=== PATIENT | male | born 1975 | race Caucasian/White ===

== ENCOUNTER 2016-05-07 09:56 | Emergency (ER) | payer OTHER ==
[2016-05-07 10:58] VITALS: BP 98/73
--- NOTE | 2016-05-07 11:16 | UC ---
Bite Injury/Animal HPI - HPI Summary HPI Summary: complaint of tick that is embedded btween 2nd 3rd toe on left foot found it today tick is engorgend and he hads a rash unsre of how long tck has been in his slkin denies pain and fever - History of Current Complaint Chief Complaint: UC Stated Complaint: TICK IN FOOT Time Seen by Provider: 05/07/16 11:09 Hx Obtained From: Patient - Allergies/Home Medications Allergies/Adverse Reactions: Allergies Allergy/AdvReac Type Severity Reaction Status Date / Time No Known Allergies Allergy Verified 05/07/16 10:45 Home Medications: Home Medications Cetirizine* [ZyrTEC 10 MG TAB*] 5 mg PO DAILY 05/07/16 [History Confirmed ] Fluticasone NASAL SPRAY 50MCG* [Flonase NASAL SPRAY 50MCG*] 2 spray BOTH NARES DAILY 05/07/16 [History Confirmed 05/07/16] PMH/Surg Hx/FS Hx/Imm Hx Previously Healthy: Yes - Surgical History Surgical History: Yes Surgery Procedure, Year, and Place: inguinal hernia; R eye; wisdom teeth - Family History Known Family History: Negative: Cardiac Disease, Hypertension, Diabetes - Social History Occupation: Employed Full-time Lives: With Family Alcohol Use: None Substance Use Type: None Smoking Status (MU): Never Smoked Tobacco Review of Systems Constitutional: Negative Skin: Other - tick bite Eyes: Negative ENT: Negative Respiratory: Negative Cardiovascular: Negative Gastrointestinal: Negative Genitourinary: Negative Motor: Negative Neurovascular: Negative Musculoskeletal: Negative Neurological: Negative Psychological: Negative All Other Systems Reviewed And Are Negative: Yes Physical Exam Triage Information Reviewed: Yes Vital Signs: Initial Vital Signs Temp 98.3 F 05/07/16 10:48 Pulse 64 05/07/16 10:48 Resp 18 05/07/16 10:48 BP 98/73 05/07/16 10:48 Pulse Ox 97 05/07/16 10:48 Vital Signs Reviewed: Yes Eyes: Positive: Conjunctiva Clear ENT: Positive: Pharynx normal, TMs normal Neck: Positive: No Lymphadenopathy Respiratory: Positive: Lungs clear, Normal breath sounds, No respiratory distress Cardiovascular: Positive: RRR, No Murmur Abdomen Description: Positive: Soft Musculoskeletal: Positive: No Edema Neurological: Positive: Alert Psychological Exam: Normal Skin: Positive: Other - tick embedded between left 2nd and 3rd toe- [id number] erythematous area surrounding tick Procedures - Procedure Summary Procedure Summary: removed tick intact from left foot without difficulty and intact Bite Injury Course/Dx - Course Course Of Treatment: exam completed. tick removed. will give prophylaxis doxycycline dose - Differential Dx/Diagnosis Differential Diagnosis/HQI/PQRI: Other - tick bite, cellulitis Provider Diagnoses: insect bite- tick Discharge - Discharge Plan Condition: Stable Disposition: HOME Prescriptions: DOXYcycline CAP(*) [DOXYcycline 100MG CAP(*)] 100 mg PO DAILY #2 cap Patient Education Materials: Tick Bite (ED) Referrals: Octavio Davies MD [Primary Care Provider] - Additional Instructions: Start antibiotic as directed Increase fluids and rest Take acetaminophen for fever or pain Please review your discharge instructions. If your symptoms do not improve please call your primary care provider or return to urgent care
== END 2016-05-07 11:30 | disposition home or self-care (01) ==
LOC: UCEAST 09:56
DX: T63.481A Toxic effect of venom of other arthropod, accidental (unintentional), initial encounter (principal)
CPT/HCPCS: 99212; G0463

== ENCOUNTER 2016-08-15 09:22 | Emergency (ER) | payer OTHER ==
[2016-08-15 10:13] VITALS: BP 102/73
--- NOTE | 2016-08-15 11:34 | UC ---
Abdominal Pain Male HPI - HPI Summary HPI Summary: 2 DAYS OF WATERY DIARRHEA. EPISODES ABOUT EVERY 2 HOURS. DENIES ANY ABDOMINAL PAIN OR NAUSEA. NO VOMITING. NO FEVER. NO RECENT TRAVEL OR NEW/QUESTIONABLE FOODS. NO NEW MEDS. APPETITE OKAY. - History of Current Complaint Chief Complaint: UCGI Stated Complaint: DIARRHEA Time Seen by Provider: 08/15/16 11:27 Hx Obtained From: Patient Onset/Duration: Lasting Days, Still Present Severity Initially: Moderate Severity Currently: Moderate Pain Intensity: 0 Pain Scale Used: 0-10 Numeric Character: Not Applicable Aggravating Factor(s):: Nothing Alleviating Factor(s): Nothing Associated Signs And Symptoms: Positive: Diarrhea. Negative: Fever, Back Pain, Constipation, Blood in Stool, Urinary Symptoms, Decreased Appetite, Nausea, Vomiting - Allergies/Home Medications Allergies/Adverse Reactions: Allergies Allergy/AdvReac Type Severity Reaction Status Date / Time No Known Allergies Allergy Verified 08/15/16 10:12 PMH/Surg Hx/FS Hx/Imm Hx - Additional Past Medical History Additional PMH: ALLERGIES - Surgical History Surgical History: Yes Surgery Procedure, Year, and Place: inguinal hernia; R eye; wisdom teeth - Family History Known Family History: Negative: Cardiac Disease, Hypertension, Diabetes - Social History Alcohol Use: Weekly Substance Use Type: None Smoking Status (MU): Never Smoked Tobacco Review of Systems Constitutional: Negative ENT: Negative Respiratory: Negative Cardiovascular: Negative Gastrointestinal: Diarrhea Genitourinary: Negative All Other Systems Reviewed And Are Negative: Yes Physical Exam Triage Information Reviewed: Yes Appearance: Well-Appearing, No Pain Distress, Well-Nourished, Other: - MUCOUS MEMBRANES MOIST Vital Signs: Initial Vital Signs Temp 97.4 F 08/15/16 10:08 Pulse 80 08/15/16 10:08 Resp 16 08/15/16 10:08 BP 102/73 08/15/16 10:08 Pulse Ox 96 08/15/16 10:08 Vital Signs Reviewed: Yes Eyes: Positive: Conjunctiva Clear ENT: Positive: Hearing grossly normal Neck: Positive: Supple Respiratory Exam: Normal Cardiovascular Exam: Normal Abdomen Description: Positive: Nontender, Soft. Negative: CVA Tenderness (R), CVA Tenderness (L), Distended, Guarding Bowel Sounds: Positive: Present Musculoskeletal: Positive: No Edema Neurological: Positive: Alert Psychological: Positive: Age Appropriate Behavior Skin: Negative: rashes Abd Pain Male Course/Dx - Course Course Of Treatment: CONSERVATIVE MGMT FOR NOW. LIKELY A VIRUS AND SX WILL RESOLVE ON THEIR OWN WITH TIME. WILL SEND HOME WITH STOOL KIT. IF SX PERSISTENT PT WILL BRING IN A SAMPLE FOR TESTING. TO ER WITHOUT FAIL IF SX WORSEN. - Differential Dx/Clinical Impression Provider Diagnoses: ACUTE DIARRHEA Discharge - Discharge Plan Condition: Stable Disposition: HOME Patient Education Materials: Acute Diarrhea (ED) Referrals: Octavio Davies MD [Primary Care Provider] - If Needed Additional Instructions: ENSURE ADEQUATE HYDRATION. CLEAR LIQUIDS, BLAND DIET. AVOID CAFFEINE, DAIRY, GREASY, SPICY FOODS. IF YOUR SYMPTOMS ARE PERSISTENT BRING IN A STOOL SAMPLE FOR TESTING. GO TO THE ER WITHOUT FAIL IF YOU DEVELOP SHORTNESS OF BREATH, NAUSEA, VOMITING, INABILITY TO KEEP ANYTHING DOWN, DIZZINESS OR ANY OTHER CONCERNING SYMPTOMS.
== END 2016-08-15 11:45 | disposition home or self-care (01) ==
LOC: UCEAST 09:22
DX: R19.7 Diarrhea, unspecified (principal)
CPT/HCPCS: 99211; G0463

== ENCOUNTER 2017-02-28 18:38 | Emergency (ER) | payer OTHER ==
[2017-02-28 20:44] VITALS: BP 107/67
[2017-02-28] MEDS ORDERED: Cephalexin CAP* 500 MG PO ONE (21:04)
[2017-02-28] MEDS ORDERED: Tetan/Diph/Pertus SYR(Tdap)* 0.5 ML SYR(BOOSTRIX) use SYR IM ONE (21:04)
--- NOTE | 2017-02-28 21:13 | UC ---
Skin Complaint HPI - History of Current Complaint Chief Complaint: UCUpperExtremity Time Seen by Provider: 02/28/17 20:54 Stated Complaint: CUT ON HAND Hx Obtained From: Patient Onset/Duration: Sudden Onset - hand hit telephone pole by mistake and a splinter got lodged beneath R index finger today. pt was able to remove splinter but worried about infection Skin Exposure Onset/Duration: Hours Ago Onset Severity: Moderate Current Severity: Mild Location: Hand (Right) Aggravating Factor(s): Touch Alleviating Factor(s): Nothing Associated Signs & Symptoms: Positive: Negative - Allergy/Home Medications Allergies/Adverse Reactions: Allergies Allergy/AdvReac Type Severity Reaction Status Date / Time No Known Allergies Allergy Verified 02/28/17 20:44 Review of Systems Constitutional: Negative Respiratory: Negative Cardiovascular: Negative Neurological: Negative Psychological: Negative All Other Systems Reviewed And Are Negative: Yes PMH/Surg Hx/FS Hx/Imm Hx Previously Healthy: Yes - Surgical History Surgical History: Yes Surgery Procedure, Year, and Place: inguinal hernia; R eye; wisdom teeth - Family History Known Family History: Negative: Cardiac Disease, Hypertension, Diabetes - Social History Occupation: Employed Full-time Lives: With Family Alcohol Use: Occasionally Substance Use Type: None Smoking Status (MU): Never Smoked Tobacco - Immunization History Most Recent Tetanus Shot: unknown, definately not in few years Physical Exam Triage Information Reviewed: Yes Appearance: Well-Appearing, No Pain Distress, Well-Nourished Vital Signs: Initial Vital Signs Temp 98.7 F 02/28/17 20:40 Pulse 73 02/28/17 20:40 Resp 12 02/28/17 20:40 BP 107/67 02/28/17 20:40 Pulse Ox 98 02/28/17 20:40 Vital Signs Reviewed: Yes Respiratory Exam: Normal Cardiovascular Exam: Normal Neurological Exam: Normal Psychological Exam: Normal Skin: Positive: Other - small PW under R index fingernail, no bleeding, no FB detected no swelling or redness, small amount black dirt under nail (pt states he did not wash wound) Course/Dx - Course Course Of Treatment: wound cleansed with surgical scrub brush - Differential Diagnoses - Skin Complaint Differential Diagnoses: Cellulitis, Other - PW FB - Diagnoses Provider Diagnoses: PW right finger Discharge - Discharge Plan Condition: Stable Disposition: HOME Prescriptions: Cephalexin CAP* [Keflex CAP*] 500 mg PO TID #21 cap Patient Education Materials: Puncture Wound (ED), Diphtheria/Pertussis/Tetanus Vaccine (By injection) Referrals: Octavio Davies MD [Primary Care Provider] - 2 Days (if no better) Additional Instructions: keep wound clean and dry and watch for signs of infection Take antibiotic as prescribed use ibuprofen as directed if needed for pain
== END 2017-02-28 21:24 | disposition home or self-care (01) ==
LOC: UCEAST 18:38
DX: S61.230A Puncture wound without foreign body of right index finger without damage to nail, initial encounter (principal); W22.8XXA Striking against or struck by other objects, initial encounter; Y93.9 Activity, unspecified; Y92.9 Unspecified place or not applicable; Z23 Encounter for immunization
CPT/HCPCS: 90715; 99212; A9270-GY; G0463